=== PATIENT | male | born 1960 | race Caucasian/White ===

== ENCOUNTER → 2018-12-29 | Outpatient (CLI) | payer BC ==
--- NOTE | 2018-12-29 21:42 | CONS ---
CONSULTATION DATE OF SERVICE: 12/29/2018 58-year-old gentleman has been evaluated in the sleep center for possible obstructive sleep apnea-hypopnea syndrome. HISTORY OF PRESENT ILLNESS/SLEEP WAKE EVALUATION: SLEEP SCHEDULE: Patient usual sleep schedule from 10 or 10:30 p.m. until 6:30 a.m., on weekends from 10 to 10:30 p.m. until 7:30 or 8 am. FALLING ASLEEP: No problems with falling asleep. No TV in bedroom. DURING SLEEP: The patient sleeps with snoring according to his . He wakes up from sleep around 3 times with possible 1 episode of nocturia. Also, he is grinding teeth his teeth and has episodes of sweating. DURING THE DAY/SLEEP WAKE EVALUATION: In the morning, patient wakes up tired. Falling asleep during the day, has problems with memory and concentration. Calvin Sleepiness Scale is significantly increased to 15 and this is with the usage of amphetamines during the day. The patient also drink 5- 6 cups of cups of coffee during the day and may take naps once afternoon. No history of hypnagogic hallucinations, sleep paralysis or cataplexy. PAST MEDICAL HISTORY: Positive for renal phenomenon, hyperlipidemia, ADHD. PAST SURGICAL HISTORY: Sinus surgery. Hernia repair. MEDICATIONS: Nifedipine, amphetamine, atorvastatin, vitamin D3 and calcium supplement. FAMILY HISTORY: Hyperlipidemia and cancer. REVIEW OF SYSTEMS: Tiredness and sleepiness during the day. Problem with memory and concentration. PHYSICAL EXAM: gentleman without distress. BP 138/82, HR 76, RR 16, height 5 feet 8 inches, weight 198.4 pounds. Body mass index 30.1, temperature 98.3, oxygen saturation at room air 95%. Oropharynx moderately low position of soft palate. Mallampati 3. Wide pillars, restriction of nasal breathing on the right side. Wide neck 16 inches in circumference. Neck Supple, no JVD. Thyroid is not palpable. LUNGS Clear to percussion and to auscultation. Good air exchange. No wheezing or rhonchi. HEART S1, S2 regular. No murmurs, gallops, or rubs. ABDOMEN Soft and nontender. Bowel sounds are present. No organomegaly appreciated. EXTREMITIES No clubbing or cyanosis. LOG CHIPPER Awake, alert, and oriented X3. Cranial nerves 2 to 7 intact. There is no fasciculation or atrophy. noted. No focal deficits observed. IMPRESSION: 1. Snoring, awakenings from sleep with nocturia, small oropharyngeal air space, wide neck, possible obstructive sleep apnea-hypopnea syndrome. 2. Significant excessive daytime sleepiness. Calvin Sleepiness Scale increased to 15 while patient is on treatment with dextroamphetamine and 5-6 cups of coffee a day. Differential diagnosis include hypersomnia including narcolepsy. 3. History of Raynaud phenomenon. 4. Hyperlipidemia. 5. History of sinus problems, status post sinus surgery. 6. Status post hernia repair. 7. History of attention-deficit/hyperactivity disorder. PLAN: 1. Polysomnography for evaluation of patient's breathing during sleep. 2. CPAP/BiPAP titration if sleep study confirms obstructive sleep apnea-hypopnea syndrome. 3. Preferable position during sleep on the side. 4. No driving if patient feels any sleepiness. 5. I will see patient for follow up visit to explain results of testing and following plan. 6. Multiple sleep latency test if the sleep study will be negative for obstructive sleep apnea-hypopnea syndrome. Thank you very much for referring this patient for consultation. Sincerely, Brice Daniel MD, PhD, FAASM Diplomat of [employer] Production Machine Operator [facility] [place] MMODL / CAMN: [id number] /
== END ==
LOC: SLEEP 16:50
PROVIDERS: ATTEND Internal Medicine
DX: R06.83 Snoring (principal); I73.00 Raynaud's syndrome without gangrene; E78.5 Hyperlipidemia, unspecified; F90.9 Attention-deficit hyperactivity disorder, unspecified type; Z98.890 Other specified postprocedural states; Z99.89 Dependence on other enabling machines and devices; Z79.899 Other long term (current) drug therapy
CPT/HCPCS: 99211

== ENCOUNTER → 2019-06-26 | Outpatient (CLI) | payer BC ==
--- NOTE | 2019-06-27 08:27 | XR ---
EXAMINATION TYPE: XR knee complete RT DATE OF EXAM: 06/26/2019 COMPARISON: None HISTORY: Chronic right knee pain TECHNIQUE: Three-view right knee FINDINGS: No acute fractures or dislocations are evident. Small joint effusion may be present. Anterior superior patellar spur is present. Joint spaces appear preserved. IMPRESSION: 1. No acute osseous abnormality. 2. Small joint effusion may be present.
== END | disposition home or self-care (01) ==
LOC: RADXRMAIN 17:50
PROVIDERS: ATTEND Internal Medicine
DX: M25.561 Pain in right knee (principal)

== ENCOUNTER → 2020-01-25 | Outpatient (CLI) | payer BC ==
--- NOTE | 2020-01-25 17:20 | PN ---
PROGRESS NOTE DATE OF SERVICE: 01/25/2020 This patient is a 59-year-old gentleman who has been evaluated in the sleep center for possible obstructive sleep apnea-hypopnea syndrome. Patient's usual sleep schedule from is 10 p.m. to 6 or 6:30 a.m. on working days and until 7:30 a.m. on weekends. Usually no problems with falling asleep. He wakes up from sleep several times and has at least one episode of nocturia at night. He snores and has episodes of sweating during sleep. In the morning he wakes up tired, has difficulties paying attention, falling asleep during the day. He has problems with the memory, concentration, irritability. [place] Sleepiness Scale is increased at 11. MEDICATIONS: Atorvastatin, Adderall 20 mg daily for ADHD, nifedipine 30 mg. PHYSICAL EXAMINATION: GENERAL: A pleasant patient in no distress. VITAL SIGNS: BP 137/74, HR 74, RR 16, height 5 feet 7-3/4 inches, weight 189.2 pounds, body mass index 28.9, temperature 97.9, oxygen saturation at room air 96%. HEENT: PERRLA, EOMI. Evaluation of oropharynx showed tongue protrudes midline. Mallampati III. Big uvula. Wide pillars. NECK: Supple. No JVD. Thyroid is not palpable. LUNGS: Clear to percussion and to auscultation. Good air exchange. No wheezing or rhonchi. HEART: S1, S2 regular. No murmurs, gallops or rubs. ABDOMEN: Soft and nontender. Bowel sounds are present. No organomegaly. EXTREMITIES: No clubbing or cyanosis. 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 Cranial nerves 2 to 7 intact. There is no fasciculation or atrophy. noted. No focal deficits observed. IMPRESSION: 1. Snoring, awakenings from sleep with nocturia, small oropharyngeal air space; possible obstructive sleep apnea-hypopnea syndrome. 2. History of Raynaud phenomenon. 3. Hyperlipidemia. 4. History of sinus problems. 5. Status post sinus surgery. 6. Status post hernia repair. 7. History of attention deficit hyperactivity disorder. PLAN: 1. Sleep study for evaluation of patient's breathing during sleep. 2. Development of a plan after reviewing the results of sleep test. 3. Watching weight. 4. Sleep hygiene with regular time in bed for at least 7-1/2 to 8 hours. 5. No driving if feeling any sleepiness. 6. Patient could be a candidate for multiple sleep latency test because of daytime sleepiness if the sleep study is negative for obstructive sleep apnea/hypopnea syndrome. Thank you very much for allowing me to participate in the management of your patient. Sincerely, Brice Daniel MD, PhD, FAASM Diplomat of [place] [employer] [employer] [facility] [place] MMODL / IJN: [id number] /
== END | disposition home or self-care (01) ==
LOC: SLEEP 15:40
PROVIDERS: ATTEND Internal Medicine
DX: R06.83 Snoring (principal); E78.5 Hyperlipidemia, unspecified; Z87.39 Personal history of other diseases of the musculoskeletal system and connective tissue; Z85.22 Personal history of malignant neoplasm of nasal cavities, middle ear, and accessory sinuses; Z86.59 Personal history of other mental and behavioral disorders; Z98.890 Other specified postprocedural states; Z79.899 Other long term (current) drug therapy

== ENCOUNTER → 2022-01-09 | Outpatient (CLI) | payer BC ==
--- NOTE | 2022-01-09 12:19 | NM ---
EXAMINATION TYPE: NM stress cardiolite complete DATE OF EXAM: 01/09/2022 COMPARISON: NONE HISTORY: chest pain TECHNIQUE: After the intravenous administration of 10.3 mCi Tc 99m Sestamibi - Rest images obtained 65 minutes post injection. The patient exercised using a DUNG protocol and 1 minute prior to peak exercise was injected with 25.5 mCi Tc 99m Sestamibi - Stress images obtained 20 minutes post injecti on. FINDINGS: Targeted heart rate was achieved during performance of the study. Review of stress and rest SPECT cynthia ges demonstrates fixed defect involving the cardiac apex and inferior wall compatible with remote ins ult or attenuation artifact. No evidence for stress-induced ischemia this time. Gated analysis shows normal wall motion with an estimated left ventricular ejection fraction of 74 %. IMPRESSION: No scintigraphic evidence for reversible ischemia
--- NOTE | 2022-01-09 14:35 | EST ---
EXERCISE STRESS AGE: 61 SEX: M HT: 5'10" WT: 190 lbs. PROTOCOL: Armando STAGE: 4 DURATION OF EXERCISE: 9:54 HEART RATE REST: 67 BLOOD PRESSURE REST: 142/88 MAXIMUM HEART RATE ACHIEVED: 143 MAXIMUM BLOOD PRESSURE: 213/88 85% MPHR: 134 100% MPHR: 158 METS: 11.8 INDICATIONS: ASCAD CLINICAL INFORMATION: Baseline rhythm is sinus mechanism, right bundle branch block with nonspecific ST-T wave changes. Baseline blood pressure 142/88 mmHg. Patient exercised on Armando protocol for 9 minutes 54 seconds, reaching a peak rate of 143 beats per minute, which is equal to 90% of maximum predicted heart rate. Peak blood pressure 205/85 mmHg. Test was terminated secondary to fatigue. There was chest pain. Electrocardiograph monitoring revealed no evidence of diagnostic ischemic ST deviation. Cardiolite was injected at peak exercise. CONCLUSION: 1. Good exercise tolerance with nondiagnostic electrocardiograph stress testing secondary to baseline EKG abnormality. 2. Nuclear images will be reported separately. MMODL / IJN: [id number] / [facility] INSANEYulia
== END | disposition home or self-care (01) ==
LOC: RADNMMAIN 08:35
PROVIDERS: ATTEND Internal Medicine
DX: I25.10 Atherosclerotic heart disease of native coronary artery without angina pectoris (principal)
CPT/HCPCS: 93017; 78452; A9500

== ENCOUNTER 2022-07-24 07:29 | Day surgery (SDC) | payer BC ==
[~2022-07-24 07:29] MED LIST: LACTATED RINGERS 1,000 ML IV SCH
[2022-07-24 07:53] VITALS: TEMP 96.3
[2022-07-24] MEDS ORDERED: PROPOFOL 10 MG/ML 20 ML VIAL IV ONE (08:29)
--- NOTE | 2022-07-24 08:48 | P.PCN ---
Date of Procedure: 07/24/22 Procedure(s) Performed: BRIEF HISTORY: Patient is a 62-year-old pleasant white female male scheduled for an elective colonoscopy as a part of screening for colorectal neoplasia. PROCEDURE PERFORMED: Colonoscopy. PREOPERATIVE DIAGNOSIS: Ccreening for colorectal neoplasia.. IV sedation per Anesthesia. PROCEDURE: After informed consent was obtained, the patient, was brought into the endoscopy unit. IV sedation was administered by Anesthesia under continuous monitoring. Digital rectal examination was normal. Initially the Olympus CF-160 flexible video colonoscope was then inserted in the rectum, gradually advanced into the cecum without any difficulty. Careful examination was performed as the scope was gradually being withdrawn. Ileocecal valve and the appendiceal orifice were visualized and appeared normal. Prep was excellent. Mucosa of the cecum, ascending colon, transverse colon, descending colon, sigmoid colon, and rectum appeared normal. scattered sigmoid diverticulosis.Retroflexion was performed in the rectum and no lesions were seen. The patient tolerated the procedure well. IMPRESSION: Normal-appearing colon from rectum to cecum with no evidence of colorectal neoplasia . scattered sigmoid diverticulosis. RECOMMENDATIONS: Findings of this examination were discussed with the patient as well as his family. He was advised to have a repeat screening colonoscopy in 10 years..
[2022-07-24 09:08] VITALS: BP 123/70; PULSE 74; RESP 18
== END 2022-07-24 09:32 | disposition home or self-care (01) ==
LOC: ORWHC2ENDO 07:29
PROVIDERS: ATTEND Internal Medicine Gastroenterology
DX: Z12.11 Encounter for screening for malignant neoplasm of colon (principal); K57.30 Diverticulosis of large intestine without perforation or abscess without bleeding; I10 Essential (primary) hypertension; E78.5 Hyperlipidemia, unspecified; F90.1 Attention-deficit hyperactivity disorder, predominantly hyperactive type; Z98.890 Other specified postprocedural states
CPT/HCPCS: 45378; J2704

== ENCOUNTER → 2025-05-31 | Outpatient (CLI) | payer MEDICARE ==
[2025-05-31 08:00] LABS: African American GFR (CKD) >90 (>60 ml/min/1.73 sqM); Blood Urea Nitrogen 14 mg/dL (9-20); Non-African American GFR(CKD) >90 (>60 ml/min/1.73 sqM)
--- NOTE | 2025-05-31 10:20 | CT ---
EXAMINATION TYPE: CT abdomen pelvis w con CT DLP: 1163.20 mGycm, Automated exposure control for dose reduction was used. DATE OF EXAM: 05/31/2025 9:39 AM COMPARISON: None CLINICAL INDICATION:Male, 65 years old with history of R10.32 LEFT LOWER QUADRANT PAIN; LLQ abdominal pain. TECHNIQUE: Standard CT of the abdomen and pelvis following the administration of 100 cc of Isovue 3 00 IV contrast material and oral contrast. Coronal and sagittal reformats were performed. FINDINGS: LOWER CHEST: Visualized lung bases are clear. Sternotomy wires. Mitral calcifications. Coronary arter y calcifications. ABDOMEN LIVER: Unremarkable GALLBLADDER AND BILE DUCTS: Unremarkable. PANCREAS: Unremarkable. SPLEEN: Unremarkable. ADRENAL GLANDS: Unremarkable. KIDNEYS AND URETERS: No evidence of hydronephrosis or renal calculus. The kidneys enhance symmetrical ly. Contrast is demonstrated within both collecting systems on the delayed phase. PELVIS BLADDER: Unremarkable REPRODUCTIVE: Coarse calcifications of the prostate gland are identified. ABDOMEN & PELVIS STOMACH AND BOWEL: Stomach and duodenum are unremarkable. Sigmoid diverticulosis without definitive e vidence for acute diverticulitis. Circumferential wall thickening of the sigmoid colon without surrou nding inflammatory changes likely related to chronic diverticulitis changes. Moderate amount of stool is present within the colon. Enteric contrast reaches the mid small bowel. The appendix is within no rmal limits. No focal bowel wall thickening or surrounding inflammatory changes identified. No eviden ce of bowel obstruction. PERITONEUM: No evidence of pneumoperitoneum or free fluid. VASCULATURE: Mild atherosclerotic calcifications are present throughout the abdominal aorta and its b ranches. No evidence of aortic aneurysm. MUSCULOSKELETAL: No acute osseous abnormalities. Degenerative changes of the bilateral SI joints with anterior bridging. Multiple multilevel degenerative disc disease. Most pronounced at L4-L5. LYMPH NODES: No evidence for lymphadenopathy. SOFT TISSUE/ABDOMINAL WALL: Fat filled direct left inguinal hernia. Postsurgical changes from right i nguinal hernia repair with mesh. IMPRESSION: 1. No CT evidence for acute abdominal/pelvic processes. 2. Sigmoid diverticulosis without evidence for acute diverticulitis. 3. Fat filled direct left inguinal hernia with postsurgical changes from right inguinal hernia repair with mesh. [facility], , 05/31/2025 10:18 AM
== END | disposition home or self-care (01) ==
LOC: RADCTMAIN 07:17
PROVIDERS: ATTEND Internal Medicine
DX: K57.30 Diverticulosis of large intestine without perforation or abscess without bleeding (principal); K40.20 Bilateral inguinal hernia, without obstruction or gangrene, not specified as recurrent
CPT/HCPCS: 82565; 84520; 74177; 36415; Q9967